=== PATIENT | female | born 1965 | race Caucasian/White ===

== ENCOUNTER 2018-11-17 14:56 | Inpatient (IN) | payer MEDICAID ==
[~2018-11-17] VITALS: Ht 149.9 cm; Wt 64.0 kg
[~2018-11-17 14:56] MED LIST: ALBUPOW26; ASCO250T13 PO; BUPR100T71
[2018-11-17] MEDS ORDERED: SODIUM CHLORIDE 0.9% 1,000 ML IVB ONE (15:18)
[2018-11-17] MEDS ORDERED: ONDANSETRON HCL 4 MG/2 ML VIAL IV ONE (15:30)
[2018-11-17] MEDS ORDERED: KETOROLAC TROMETH 15 mg/ml 1ML VL IV ONE (15:30)
[2018-11-17] MEDS ORDERED: DexAMETHasone SOD PHOS 4 MG/1ML SDV INJ IV ONE (15:30)
[2018-11-17 15:47] LABS: Basophils # (auto) 0.1 uL; Basophils % (auto) 0.7 % (0.0-2.0); Eosinophils # (auto) 0.1 uL; Eosinophils % (auto) 0.5 % (0.0-7.0); Hematocrit 47.3 % (36.0-46.0); Hemoglobin 16.2 g/dL (12.2-16.2); Lymphocytes # (auto) 2.4 uL; Lymphocytes % (auto) 20.2 % (10.0-50.0); Mean Corpuscular Hgb Conc. 34.4 g/dL (32.0-36.0); Mean Corpuscular Volume 90.1 fL (80.0-100.0); Monocytes # (auto) 0.8 uL; Neutrophils # (auto) 8.4 uL; Neutrophils % (auto) 71.6 % (37.0-80.0); Nucleated Red Blood Cells % 0.1 %; Platelet Count (auto) 427 10^3/uL (140-450); Red Blood Cells 5.25 10^6/uL (4.0-5.20); Red Cell Distribution Width 14.7 % (11.8-14.3); White Blood Cell 11.7 10^3/uL (4.4-10.8)
[2018-11-17 16:03] LABS: Alanine Aminotransferase 23 U/L (13-56); Albumin 3.5 g/dL (3.4-5.0); Anion Gap 20 (5-15); Blood Urea Nitrogen 8 mg/dL (7-18); Calcium 8.5 mg/dL (8.5-10.1); Carbon Dioxide 13 mmol/L (21-32); Chloride 106 mmol/L (98-107); Glucose 96 mg/dL (74-106); Sodium 139 mmol/L (136-145)
[2018-11-17 16:08] LABS: Alkaline Phosphatase 110 U/L (45-117); Aspartate Aminotransferase 26 U/L (15-37); BUN/Creatinine Ratio 10.3; Bilirubin, Total 0.7 mg/dL (0.2-1.0); GFR African American 99 mL/min; GFR Non-African American 82 mL/min; Total Protein 7.7 g/dL (6.4-8.2)
[2018-11-17] MEDS ORDERED: POTASSIUM EFFERVESENT TAB 25 MEQ PO ONE (16:30)
[2018-11-17 16:36] LABS: Urine Bacteria FEW /hpf (None Seen); Urine Blood Negative /uL (Negative); Urine Hyaline Cast MOD /lpf (0 - 2); Urine Specific Gravity 1.019 (1.001-1.035); Urine WBC 2 /hpf (0 - 5)
[2018-11-17 16:52] LABS: Alcohol, Urine < 3.0 mg/dL (0-5); Amphetamine Screen, Urine NEGATIVE (NEGATIVE); Barbiturate Scree,Urine NEGATIVE (NEGATIVE); Benzodiazephine Screen, Urine NEGATIVE (NEGATIVE); Cannabinoid Screen, Urine NEGATIVE (NEGATIVE); Cocaine Screen, Urine NEGATIVE (NEGATIVE); Opiate Scree,Urine NEGATIVE (NEGATIVE); Phencyclidine Screen, Urine NEGATIVE (NEGATIVE)
[2018-11-17] MEDS ORDERED: MORPHINE SULF INJ 2 MG/ML SYRINGE 1ML IV PRN (18:15)
[2018-11-17] MEDS ORDERED: DOCUSATE SOD 100 MG CAP PO PRN (18:15)
[2018-11-17] MEDS ORDERED: ONDANSETRON HCL 4 MG/2 ML VIAL IV PRN (18:15)
[2018-11-17] MEDS ORDERED: NITROGLYCERIN 0.4 MG SL TAB SL PRN (18:15)
[2018-11-17] MEDS ORDERED: SODIUM BICARBONATE 50ML VIAL 50 ML in SOD CHL 0.45% 1,000 ML IV ONE (18:15)
[2018-11-17] MEDS: MORPHINE SULF INJ 2 MG/ML SYRINGE 1ML IV PRN ×2 (19:40→23:40)
[2018-11-17 19:50] VITALS: BP 111/70
--- NOTE | 2018-11-17 20:00 | NUR ---
Telemetry admit from ER BONNIE WHALEY admitted to Telemetry unit. Patient oriented to [facility] PAZ, primary RN, unit, room, bed, and unit policies regarding patient care and visiting hours. Patient now on continuous telemetry monitoring, tele box #6 and telemetry reading on arrival to unit is sinus rhythm at 96bpm. Patient on room air, weighed by bedscale and encouraged to call if they need something. All questions and concerns addressed, patient verbalized understanding.
[2018-11-17 21:21] VITALS: BP 124/67
[2018-11-17 22:00] VITALS: BP 111/70
[2018-11-17 23:08] VITALS: BP 111/70
[2018-11-17] MEDS ORDERED: SERT25TA84 PO (23:49)
[2018-11-17] MEDS ORDERED: CHOL20007 PO (23:49)
[2018-11-17] MEDS ORDERED: CALCTAB25 PO (23:50)
[2018-11-18] MEDS: MORPHINE SULF INJ 2 MG/ML SYRINGE 1ML IV PRN (03:23)
--- NOTE | 2018-11-18 04:53 | NUR ---
ROUNDS PATIENT RESTING IN BED WITH EYES CLOSED, EVEN AND UNLABORED RESPIRATIONS AT 16BPM. NO S/S OF PAIN/DISTRESS NOTED. CALL LIGHT WITHIN REACH.
[2018-11-18 05:00] VITALS: BP 110/72
--- NOTE | 2018-11-18 06:05 | NUR ---
PNEUMOVAX VACCINE PATIENT REQUESTED PNEUMONIA VACCINE, GIVE AT DISCHARGE.
[2018-11-18 06:52] LABS: Basophils # (auto) 0.1 uL; Basophils % (auto) 1.7 % (0.0-2.0); Eosinophils # (auto) 0 uL; Eosinophils % (auto) 0.1 % (0.0-7.0); Hematocrit 39.9 % (36.0-46.0); Hemoglobin 14.4 g/dL (12.2-16.2); Lymphocytes # (auto) 1.3 uL; Lymphocytes % (auto) 16.2 % (10.0-50.0); Mean Corpuscular Hgb Conc. 36.1 g/dL (32.0-36.0); Mean Corpuscular Volume 88.8 fL (80.0-100.0); Monocytes # (auto) 0.5 uL; Monocytes % (auto) 6.4 % (0.0-12.0); Neutrophils % (auto) 75.6 % (37.0-80.0); Platelet Count (auto) 370 10^3/uL (140-450); Red Blood Cells 4.49 10^6/uL (4.0-5.20); Red Cell Distribution Width 14.7 % (11.8-14.3); White Blood Cell 7.9 10^3/uL (4.4-10.8)
[2018-11-18 07:13] LABS: Albumin 3.2 g/dL (3.4-5.0); Calcium 8.4 mg/dL (8.5-10.1); Potassium 3.3 mmol/L (3.5-5.1)
[2018-11-18 07:19] LABS: BUN/Creatinine Ratio 13.8; Bilirubin, Total 0.5 mg/dL (0.2-1.0); Total Protein 6.9 g/dL (6.4-8.2)
--- NOTE | 2018-11-18 07:25 | NUR ---
Opening Note Received report from shift manager RN. Patient is awake, alert and oriented x4. No signs or symptoms of distress noted at this time. Patient states pain 10/10, states pain medication does not work. Patient is on room air, respirations even and unlabored. Reviewed plan of care with patient, patient verbalized understanding. Bed in low and locked position, call light within reach. Will continue to monitor Q1 hour and PRN.
--- NOTE | 2018-11-18 07:30 | NUR ---
ENDORSED CARE TO DAY SHIFT RN, [facility].
[2018-11-18 09:00] VITALS: BP 117/69
[2018-11-18] MEDS: FAMOTIDINE 20 MG TAB PO SCH (09:18)
[2018-11-18] MEDS: HYDROcodone-ACET 5/325MG TAB PO PRN (09:19)
--- NOTE | 2018-11-18 11:02 | NUR ---
Bedside Commode Assisted patient to bedside commode. Patient states she feels dizzy and weak when she stands up. Patient assisted back to bed, will continue to monitor Q1 hour and PRN.
[2018-11-18 13:00] VITALS: BP 119/69
--- NOTE | 2018-11-18 13:50 | NUR ---
Dizzy Patient states she feels dizzy while laying in bed. Patient requesting medication. Will notify Dr. Bennett. Will continue to monitor Q1 hour and PRN.
--- NOTE | 2018-11-18 14:22 | NUR ---
Dr. Bennett at bedside Reviewing plan of care
[2018-11-18] MEDS: CYCLOBENZAPRINE HCL 10 MG TAB PO PRN (14:59)
--- NOTE | 2018-11-18 16:49 | NUR ---
Rounds Patient sitting up in bed. No signs or symptoms of distress noted at this time. Patient denies pain at this time. Will continue to monitor Q1 hour and PRN.
[2018-11-18 17:00] VITALS: BP 123/72
--- NOTE | 2018-11-18 19:20 | NUR ---
Opening Shift Note Assumed care of patient, awake and alert. No S/S of distress/SOB or pain. Instructed on POC and to call for assist PRN, will continue to monitor for changes Q1hr and PRN. No new orders in place. Call light within reach.
--- NOTE | 2018-11-18 19:20 | NUR ---
Closing Note Report given to night monitor RN. No signs or symptoms of distress noted at this time.
--- NOTE | 2018-11-18 21:20 | NUR ---
Respiratory note: PT ASSESSED FOR PRN MED NEB TX. HR 74, RR 14, SPO2 98% ON R/A. NO SIGNS OF ANY RESPIRATPRY DISTRESS NOTED. ADVISED PT TO CALL IF TX IS NEEDED.
[2018-11-18 22:00] VITALS: BP 128/66
--- NOTE | 2018-11-18 22:11 | NUR ---
CALLED DR RICKETTS FOR SLEEP AID PER PATIENT REQUEST AND POTASSIUM LEVEL 3.3. NEW ORDERS RECEIVED, READ BACK AND VERIFIED.
[2018-11-18] MEDS ORDERED: POTASSIUM CHL 20 Meq TABLET PO ONE (22:15)
[2018-11-18] MEDS ORDERED: TEMAZEPAM 15 MG CAP PO ONE (22:15)
[2018-11-19] VITALS (9 sets, daily range): BP systolic 95–138; BP diastolic 67–88
[2018-11-19] MEDS: IPRATROPIUM BROM 0.5 MG/2.5ML INH SOL NEB PRN ×3 (07:14→14:42)
[2018-11-19] MEDS: ALBUTEROL SULF 2.5 MG/0.5ML(0.5%) NEB SOLN NEB PRN ×3 (07:14→14:42)
[2018-11-19] MEDS ORDERED: PNEUMOCOCCAL VACC POLYS 25 MCG/0.5 ML VIAL IM ONE (10:00)
[2018-11-19] MEDS: FAMOTIDINE 20 MG TAB PO SCH (10:58)
[2018-11-19] MEDS: HYDROcodone-ACET 5/325MG TAB PO PRN (10:58)
--- NOTE | 2018-11-19 13:30 | NUR ---
Patient is C/O chest pain Patient states "I have pain across the top of my chest, when I lift my arms." Patient states "I am still dizzy." No other s/s at this time. This RN will get an EKG and initiate chest pain protocol as indicated and continue to monitor patient PRN.
--- NOTE | 2018-11-19 13:56 | NUR ---
Progress Note EKG done and shown to Dr. Bennett, he said "it looks normal", no further orders at this time. Will follow up and medicate for pain per orders.
[2018-11-19] MEDS: MECLIZINE HCL 25 MG TAB PO SCH ×2 (18:47→22:12)
[2018-11-19] MEDS: CYCLOBENZAPRINE HCL 10 MG TAB PO PRN (18:48)
--- NOTE | 2018-11-19 19:20 | NUR ---
Opening Shift Note Assumed care of patient, awake and alert. No S/S of distress/SOB or pain. Instructed on POC and to call for assist PRN, will continue to monitor for changes Q1hr and PRN. Bed alarm on. Call light with in reach.
--- NOTE | 2018-11-19 21:00 | NUR ---
IV insertion IV access obtained, via clean sterile technique by inserting 22 gauge catheter at right hand after 1 attempt. Saline locked. IV secured properly. No trauma to site. Patient tolerated well.
--- NOTE | 2018-11-19 21:02 | NUR ---
ORTHOSTATIC VITAL SIGNS OBTAINED DOCUMENTED AND WILL REPEAT AT 0100
--- NOTE | 2018-11-19 22:15 | NUR ---
Respiratory note: PT SEEN AND ASSESSED FOR PRN MED NEB TX AT 2215. TX NOT INDICATED AT THIS TIME. PT STATED THAT HER BREATHING FELT FINE. NO DISTRESS NOTED. BREATH SOUNDS WERE CLEAR BILATERALLY. HR 86 RR 16 POX 96% ON ROOM AIR. PT AWARE TO CALL FOR RT IF ANY DISTRESS OCCURS.
[2018-11-20] MEDS: CYCLOBENZAPRINE HCL 10 MG TAB PO PRN ×2 (03:00→11:10)
[2018-11-20 05:00] VITALS: BP 131/73
[2018-11-20] MEDS: MECLIZINE HCL 25 MG TAB PO SCH ×2 (06:10→15:42)
--- NOTE | 2018-11-20 07:30 | NUR ---
Opening Note Assumed care of patient, she is A & O x4, patient is alert and sitting up to eat breakfast. Patient is comfortable at this time no s/s of distress. POC discussed with patient. Bed is in low, locked position, call light within reach, bed alarm on at patient request. Will continue to monitor Q1h and PRN.
[2018-11-20 09:00] VITALS: BP 126/81
--- NOTE | 2018-11-20 10:39 | NUR ---
Respiratory note: PT ASSESSED FOR PRN MED NEB TX, NO TX DESIRED NOR INDICATED AT THIS TIME. NO C/O SOB OR DISTRESS NOTED. HR 104 RR 16 SPO2 93% ON RA. PT IS AWAKE/ALERT SITTING IN BED. PT AND RN AWARE TO HAVE RT PAGED IF NEEDED.
[2018-11-20] MEDS: FAMOTIDINE 20 MG TAB PO SCH (11:07)
[2018-11-20 13:00] VITALS: BP 126/66
--- NOTE | 2018-11-20 15:40 | NUR ---
Per consult for home health safety evaluation. Contacted [facility] Ph: ) Fax: [phone] faxed medical records. Per Nataliya from [facility] pt has been accepted and service to start within 48hrs upon d/c. Informed [facility] and informed [facility] [employer] [facility] for authorization. Addendum: 11/20/18 at 1608 by ANANTH JOSHI Amended: Links added.
--- NOTE | 2018-11-20 16:56 | NUR ---
Contacted Yocasta from [facility] ph: ([phone]) to get authorization for [facility]. Per Yocasta from [facility] authorization number is [id number]. Addendum: 11/20/18 at 1701 by ANANTH VALDES contacted [facility] and rubin An with authorization number
[2018-11-20 17:28] VITALS: BP 125/69
--- NOTE | 2018-11-20 17:57 | NUR ---
Discharge instructions given as ordered. Encourage to follow up with PMD as instructed. All questions and concerns addressed. Patient verbalized understanding. Medication reconciliation form completed and copy given to patient.IV removed with catheter intact, pressure dressing applied. Telemetry unit returned to ICU. Patient taken to taxi via wheelchair with all personal belongings, accompanied by staff member. No distress noted at time of departure.
== END 2018-11-20 17:51 | disposition home health service (06) | DRG 111 ==
LOC: EDBD 14:56 → ER 14:58 → TELE 14:59 → TELE-WESTW 19:48
PROVIDERS: ADMIT Nurse Practitioner Acute Care; ATTEND Hospitalist
DX: R42 Dizziness and giddiness (principal); E87.2 Acidosis; R55 Syncope and collapse; M19.90 Unspecified osteoarthritis, unspecified site; F32.9 Major depressive disorder, single episode, unspecified; E78.5 Hyperlipidemia, unspecified; E87.6 Hypokalemia; J43.2 Centrilobular emphysema; F41.9 Anxiety disorder, unspecified; I25.9 Chronic ischemic heart disease, unspecified; E78.00 Pure hypercholesterolemia, unspecified; F17.210 Nicotine dependence, cigarettes, uncomplicated; G89.4 Chronic pain syndrome; I10 Essential (primary) hypertension; Z79.899 Other long term (current) drug therapy; Z80.0 Family history of malignant neoplasm of digestive organs; Z82.49 Family history of ischemic heart disease and other diseases of the circulatory system; Z83.3 Family history of diabetes mellitus; Z90.49 Acquired absence of other specified parts of digestive tract; Z98.51 Tubal ligation status
CPT/HCPCS: 36415; 70450; 70545; 70551; 71046; 80053; 80307; 81001; 83605; 83735; 83930; 84443; 84484; 85025; 93005; 93306; 93886; 94640; 96361; 96374; 96375; G0378; J1100; J2405

== ENCOUNTER 2019-08-25 16:01 | Emergency (ER) | payer MEDICAID ==
[~2019-08-25] VITALS: Ht 149.9 cm; Wt 56.7 kg
[~2019-08-25 16:01] MED LIST changes: -BUPR100T71; +CALCTAB25 PO; +CHOL20007 PO; +SERT25TA84 PO
[2019-08-25] MEDS ORDERED: SODIUM CHLORIDE 0.9% 1,000 ML IV ONE (16:14)
[2019-08-25] MEDS ORDERED: KETOROLAC TROMETH 15 mg/ml 1ML VL IV ONE (16:15)
[2019-08-25] MEDS ORDERED: ALBUTEROL SULF 2.5 MG/0.5ML(0.5%) NEB SOLN NEB ONE (16:15)
[2019-08-25] MEDS ORDERED: IPRATROPIUM BROM 0.5 MG/2.5ML INH SOL NEB ONE (16:15)
[2019-08-25] MEDS ORDERED: KETOROLAC TROMETH 30 MG/ML 1ML VIAL ONE (16:25)
[2019-08-25 16:43] LABS: Basophils # (auto) 0.1 10 ^3/uL (0-0.2); Basophils % (auto) 1.3 % (0.0-2.0); Eosinophils # (auto) 0.1 10 ^3/uL (0-0.8); Eosinophils % (auto) 1.8 % (0.0-7.0); Hematocrit 47.3 % (36.0-46.0); Hemoglobin 15.9 g/dL (12.2-16.2); Lymphocytes % (auto) 39.9 % (10.0-50.0); Mean Corpuscular Hgb Conc. 33.5 g/dL (32.0-36.0); Mean Corpuscular Volume 92.5 fL (80.0-100.0); Monocytes # (auto) 0.7 10 ^3/uL (0-1.3); Monocytes % (auto) 8.8 % (0.0-12.0); Neutrophils # (auto) 3.6 10 ^3/uL (1.6-8.6); Neutrophils % (auto) 48.2 % (37.0-80.0); Platelet Count (auto) 287 10^3/uL (140-450); Red Blood Cells 5.12 10^6/uL (4.0-5.20); White Blood Cell 7.4 10^3/uL (4.4-10.8)
[2019-08-25 16:52] LABS: Anion Gap 4 (5-15); Carbon Dioxide 29 mmol/L (21-32); Chloride 107 mmol/L (98-107); Potassium 4.2 mmol/L (3.5-5.1); Sodium 140 mmol/L (136-145)
[2019-08-25 16:53] LABS: Albumin 3.4 g/dL (3.4-5.0); Blood Urea Nitrogen 8 mg/dL (7-18); Calcium 8.6 mg/dL (8.5-10.1); Glucose 120 mg/dL (74-106); Magnesium 1.9 mg/dL (1.6-2.6)
[2019-08-25 16:57] LABS: Alanine Aminotransferase 16 U/L (13-56); Alkaline Phosphatase 121 U/L (45-117); Aspartate Aminotransferase 21 U/L (15-37); BUN/Creatinine Ratio 13.3; Bilirubin, Total 0.3 mg/dL (0.2-1.0); GFR African American 134 mL/min; GFR Non-African American 111 mL/min; Total Protein 7.3 g/dL (6.4-8.2)
[2019-08-25 17:31] LABS: Urine WBC None Seen /hpf (0 - 5)
[2019-08-25 17:40] LABS: Urine Bacteria FEW /hpf (None Seen); Urine Blood Negative /uL (Negative); Urine Specific Gravity 1.016 (1.001-1.035)
[2019-08-25 18:23] VITALS: BP 152/92
== END 2019-08-25 18:23 | disposition home or self-care (01) ==
LOC: EDBD 16:01 → ER 16:01
DX: J44.9 Chronic obstructive pulmonary disease, unspecified (principal); G89.4 Chronic pain syndrome; M19.90 Unspecified osteoarthritis, unspecified site; E78.5 Hyperlipidemia, unspecified; F17.210 Nicotine dependence, cigarettes, uncomplicated
CPT/HCPCS: 36415; 71046; 80053; 81001; 83735; 84443; 84484; 85025; 93005; 94640; 96374; 99285; J1885; J7030; J7644